=== PATIENT | male | born 2000 ===

== ENCOUNTER 2021-09-10 22:23 | Emergency (ER) | payer BC ==
[~2021-09-10] VITALS: Ht 177.8 cm; Wt 63.5 kg
[2021-09-10] MEDS ORDERED: TRUVADA 200 MG1 EACH PO (22:32)
[2021-09-11] MEDS ORDERED: INTESTINEX680 M1 PO (02:38)
[2021-09-11] MEDS ORDERED: PEPCID AC20 MG PO (02:38)
[2021-09-11] MEDS ORDERED: CARAFATE1 GM PO (02:38)
[2021-09-11] MEDS ORDERED: PHENERGAN25 MG PO (02:38)
== END 2021-09-11 03:08 | disposition home or self-care (01) ==
LOC: ER 22:23
DX: K52.9 Noninfective gastroenteritis and colitis, unspecified (principal); E87.6 Hypokalemia; A05.9 Bacterial foodborne intoxication, unspecified